=== PATIENT | male | born 1990 | race Caucasian/White ===

== ENCOUNTER 2016-06-05 01:19 | Outpatient (CLI) | payer MEDICAID | END 2016-06-05 01:20 | disposition home or self-care (01) | DX: R10.13 Epigastric pain (principal) | CPT/HCPCS: A0425; A0429 ==

== ENCOUNTER 2016-06-12 01:40 | Outpatient (CLI) | payer MEDICAID | END 2016-06-12 01:41 | disposition short-term general hospital (02) | DX: R10.32 Left lower quadrant pain (principal) | CPT/HCPCS: A0425; A0427 ==

== ENCOUNTER 2016-06-20 22:44 | Emergency (ER) | payer MEDICAID ==
[2016-06-20] MEDS ORDERED: HYDROcod/ACETAM 5/325 MG TABLET PO STA (23:13)
[2016-06-20] MEDS ORDERED: KETOROLAC 60 MG/2 ML VIAL IM STA (23:13)
[2016-06-20] MEDS ORDERED: KETOROLAC 60 MG/2 ML VIAL ONE (23:19)
[2016-06-20] MEDS ORDERED: HYDROcod/ACETAM 5/325 MG TABLET ONE (23:19)
== END 2016-06-21 01:05 | disposition home or self-care (01) ==
DX: R10.11 Right upper quadrant pain (principal); M54.5 Low back pain; I10 Essential (primary) hypertension; E11.9 Type 2 diabetes mellitus without complications; Z79.4 Long term (current) use of insulin
CPT/HCPCS: 36415; 74176; 80053; 81001; 83690; 85025; 96372; 99283; A9270

== ENCOUNTER 2023-06-19 15:07 | Outpatient (CLI) | payer MEDICAID | END 2023-06-19 23:59 | disposition short-term general hospital (02) | LOC: EMS 15:07 | DX: R06.02 Shortness of breath (principal); R50.9 Fever, unspecified; R07.1 Chest pain on breathing; R05.9 Cough, unspecified; R00.0 Tachycardia, unspecified; E11.65 Type 2 diabetes mellitus with hyperglycemia | CPT/HCPCS: A0425; A0427; A0999 ==

== ENCOUNTER 2023-08-03 05:19 | Outpatient (CLI) | payer MEDICAID | END 2023-08-03 05:20 | disposition E | LOC: EMS 05:19 ==